=== PATIENT | female | born 1955 | race Caucasian/White ===

== ENCOUNTER 2020-07-01 07:53 | Outpatient (CLI) | payer OTHER ==
--- NOTE | 2020-07-01 09:54 | BD ---
DEXA BONE DENSITY STUDY: Date: 07/01/2020 HISTORY: Osteoporosis screening. COMPARISON: DEXA scan from 2003. FINDINGS: Lumbar Spine: BMD (g/cm2) L1 0.782 T-Score: -1.9 Z-Score: -0.2 L2 1.011 T-Score: -0.2 Z-Score: 1.7 L3 1.068 T-Score: -0.1 Z-Score: 1.8 L4 1.154 T-Score: 0.8 Z-Score: 2.9 L1-L4 0.999 T-Score: -0.4 Z-Score: 1.5 Change from comparison examination is +26.3%, likely sequelae of degenerative change. Left Femoral Neck: 0.620 T-Score: -2.1 Z-Score: -0.4 Total Femur: 0.807 T-Score: -1.1 Z-Score: 0.2 Change from comparison examination is +4.2%. WHO Classification: Normal. IMPRESSION: Osteopenia with elevated fracture risk. POS: [facility]
== END 2020-07-01 07:54 | disposition home or self-care (01) ==
LOC: BICMAMMO 07:53
PROVIDERS: ATTEND Nurse Practitioner Family
DX: M81.0 Age-related osteoporosis without current pathological fracture (principal); M85.89 Other specified disorders of bone density and structure, multiple sites
CPT/HCPCS: 77080